=== PATIENT | male | born 1970 | race Caucasian/White ===

== ENCOUNTER 2021-04-11 20:22 | Inpatient (IN) | payer MEDICAID ==
[~2021-04-11] VITALS: Ht 175.3 cm; Wt 58.1 kg
[2021-04-11 22:30] VITALS: BP 129/84
[2021-04-11] MEDS ORDERED: NITROGLYCERIN 0.4 MG/TAB BOTTLE SL PRN (23:00)
--- NOTE | 2021-04-11 23:00 | NUR ---
Patient admitted from [facility]. Arrived to [address] at 2230, VSS. A&Ox2, unable to concentrate. Patient appears SOB with O2 via NC on 2L -o2 sat at 94%. Crackles and diminished breath sounds to pricila. lower lobes. Sinus tachy on monitor. bowel sounds active x4. Pupils equal and reactive to light. Redness to groin/periarea, clean with soap and water, dry, open to air. Patient has episodes of both continence and incontinence. Oriented to unit. Safety measures in place. Will continue to monitor respiratory status closely.
[2021-04-11] MEDS: ENOXAPARIN SODIUM 40 MG/0.4 ML DISP.SYRIN SQ SCH (23:51)
[2021-04-12] VITALS: BP 131/91
[2021-04-12] MEDS ORDERED: ATOV750O4 PO (01:15)
[2021-04-12] MEDS ORDERED: MULT-754 PO (01:46)
[2021-04-12] MEDS ORDERED: QUET25TA PO (01:46)
[2021-04-12] MEDS ORDERED: CHOL100040 PO (01:46)
[2021-04-12] MEDS ORDERED: ASCO-352 PO (01:46)
[2021-04-12] MEDS ORDERED: BICT1TAB PO (01:46)
[2021-04-12] MEDS ORDERED: FOLI0.8T3 PO (01:46)
[2021-04-12] MEDS ORDERED: MELA3TAB41 PO (01:46)
[2021-04-12] MEDS ORDERED: SENN-261 PO (01:46)
[2021-04-12] MEDS ORDERED: CALC500T88 PO (01:46)
[2021-04-12] MEDS ORDERED: CITR473S PO (01:46)
[2021-04-12] MEDS ORDERED: TAMS-12 PO (01:46)
[2021-04-12] MEDS ORDERED: SENNOSIDES 8.6 MG TABLET PO PRN (02:00)
[2021-04-12] MEDS ORDERED: MELATONIN 3 MG TABLET PO PRN (02:30)
[2021-04-12 04:00] VITALS: BP 128/76
[2021-04-12] MEDS ORDERED: ALBUTEROL FS 2.5 MG/0.5 ML VIAL.NEB NEB PRN (04:00)
[2021-04-12] MEDS ORDERED: IPRATROPIUM BROMIDE 14 GM INHALER (or 12.9 GM) IH PRN (04:00)
[2021-04-12] MEDS: AZITHROMYCIN 250 MG TABLET PO SCH (04:13)
[2021-04-12] MEDS: FUROSEMIDE 40 MG/4 ML VIAL IV SCH ×2 (04:14→09:13)
[2021-04-12 06:28] LABS: BILIRUBIN,URINE NEGATIVE (NEGATIVE); COLOR,URINE YELLOW (YELLOW); LEUKOCYTE ESTERASE ,URINE MODERATE (NEGATIVE); NITRITE, URINE NEGATIVE (NEGATIVE); PROTEIN,URINE 100 mg/dl (NEGATIVE); UGLUCOSE NEGATIVE (NEGATIVE); UROBILINOGEN,URINE 0.2 EU/dL (0.2)
[2021-04-12 06:28] LABS: BASOPHILS # (AUTO) 0.1 K/uL (0.0-0.2); BASOPHILS % (AUTO) 0.9 % (0.0-2.0); EOSINOPHILS % (AUTO) 1.6 % (0.0-6.0); HEMATOCRIT 25 % (39-51); HEMOGLOBIN 8.3 g/dL (13.5-17.5); LYMPHOCYTES # (AUTO) 2.2 K/uL (0.8-4.8); LYMPHOCYTES % (AUTO) 33.4 % (20.0-44.0); MEAN CORPUSCULAR HGB CONC 34 g/dl (31.0-36.0); MEAN CORPUSCULAR VOLUME 102 fL (80-96); MONOCYTES # (AUTO) 0.8 K/uL (0.1-1.30); MONOCYTES % (AUTO) 11.6 % (2.0-12.0); NEUTROPHILS # (AUTO) 3.5 K/uL (1.8-8.9); NEUTROPHILS % (AUTO) 52.5 % (43.0-81.0); PLATELET COUNT (AUTO) 333 K/uL (150-450); WHITE BLOOD COUNT (AUTO) 6.7 K/uL (4.3-11.0)
--- NOTE | 2021-04-12 06:35 | NUR ---
MS RN CLOSING NOTE Patient is awake, A&Ox2. shows sinus tachy on monitor. Had 1 episode where HR was in 130s while being changed. Otherwise 905-115bpm. Patient was annoyed with O2 cannula a couple times during the night and removed it, nurse and OPERATION SPECIALIST constantly reminding him to put it back on, when off of O2 sat was 90-92% on O2 2L sat is 94%. Has been compliant since 0. Urine clean cath collected and sent to lab for UA and urine culture. Patient denies SOB at this time but has shallow rapid breathing 23 breaths per minute.
[2021-04-12 07:18] LABS: ALBUMIN 2.8 g/dL (3.4-5.0); BILIRUBIN,TOTAL 1.1 mg/dL (0.2-1.0); CALCIUM, SERUM 8.5 mg/dL (8.5-10.1); CREATININE 3.3 mg/dL (0.6-1.3); MAGNESIUM 2.3 mg/dL (1.8-2.4); PHOSPHORUS 6.8 mg/dL (2.5-4.9); POTASSIUM 3.9 mmol/L (3.5-5.1); TOTAL PROTEIN, SERUM 9.1 g/dL (6.4-8.2)
[2021-04-12 07:24] LABS: THYROID STIMULATING HORMONE 0.813 uIU/mL (0.358-3.74)
--- NOTE | 2021-04-12 07:40 | NUR ---
TELE/RN OPENING NOTES RECEIVED PATIENT IN BED, ALERT ORIENTEDX2, ABLE TO MAKE NEEDS KNOWN. ON OXYGEN VIA NASAL CANNULA AT 2LPM, TOLERATING WELL. NO SOB NOTED, NO DISTRESS REPORTED. ON TELEMONITOR WITH A READING OF SINUS TACHY AT 116 BPM. IV ACCES ON LAC #20G IS INTACT AND PATENT ON SALINE LOCK. SAFETY PRECAUTIONS OBSERVED. BED LOCKED ON LOWEST POSITION, HOB ELEVATED, SIDE RAILS UPX2, CALL LIGHT WITHIN REACH. WILL CONTINUE TO MONITOR.
[2021-04-12 08:11] VITALS: BP 140/103
[2021-04-12] MEDS: CITRIC ACID/SODIUM CITRATE (BICITRA)15 ML UDC PO SCH ×2 (09:00→17:57)
[2021-04-12] MEDS ORDERED: FUROSEMIDE 40 MG/4 ML VIAL IV SCH (09:00)
[2021-04-12] MEDS: methylPREDNISolone SOD SUCC 40 MG/ML VIAL IV SCH (09:12)
[2021-04-12] MEDS: ASCORBIC ACID 500 MG TABLET PO SCH (09:13)
[2021-04-12] MEDS: FOLIC ACID 1 MG TABLET PO SCH (09:13)
[2021-04-12] MEDS: CHOLECALCIFEROL 1,000 UNIT TABLET (VIT D3) PO SCH (09:13)
[2021-04-12] MEDS: MULTIVITAMINS,THERAGRAN 1 UDTAB TABLET PO SCH (09:13)
[2021-04-12] MEDS: CALCIUM CARBONATE (1250) 500 MG TABLET PO SCH (09:14)
[2021-04-12 09:28] LABS: WBC,URINE 81-100 /HPF (0-3)
[2021-04-12 09:29] LABS: BACTERIA,URINE Few /HPF (None Seen); SQUAMOUS EPITHELIAL CELL,UR Rare /HPF (None Seen)
[2021-04-12 09:56] LABS: IRON, SERUM 90 ug/dl (50-175); TOTAL IRON BINDING CAPACITY 249 ug/dl (250-450)
[2021-04-12 10:10] LABS: FERRITIN 782 ng/mL (8-388)
[2021-04-12 11:28] VITALS: BP 159/113
[2021-04-12 16:44] VITALS: BP 149/119
--- NOTE | 2021-04-12 18:25 | NUR ---
TELE/RN NOTES- IV PATIENT PULLED OUT HIS IV AND WAS UNCOOPERATIVE WITH CARE. REFUSED RN TO START ANOTHER IV LINE. CHARGE NURSE ENOCH NOTIFIED. WILL CONTINUE TO MONITOR
--- NOTE | 2021-04-12 19:35 | NUR ---
RN NOTES RECEIVED PATIENT AWAKE ON HIS BED, A/OX1, TELE MONITOR ON STANDBY, NO IV ACCESS- REFUSED IV ACCESS, NOT IN DISTRESS, NO PAIN NOTED, CALL LIGHT WITHIN REACH, SIDERAILSUPX2, WILL CONTINUE TO MONITOR
--- NOTE | 2021-04-12 19:56 | NUR ---
TELE/RN CLOSING NOTES PATIENT IN BED, ALERT ORIENTEDX2, ABLE TO MAKE NEEDS KNOWN. ON AND OFF WITH OXYGEN VIA NASAL CANNULA AT 2LPM, TOLERATING WELL. NO SOB NOTED, NO DISTRESS REPORTED. PATIENT JUST REMOVED TELEMONITOR AND PULLED OUT IV ACCES ON LAC. SAFETY PRECAUTIONS OBSERVED. BED LOCKED ON LOWEST POSITION, HOB ELEVATED, SIDE RAILS UPX2, CALL LIGHT WITHIN REACH. WILL ENDORSE TO THE NEXT SHIFT FOR BHAVANI.
[2021-04-12 20:00] VITALS: BP 137/87
[2021-04-12] MEDS: ENOXAPARIN SODIUM 40 MG/0.4 ML DISP.SYRIN SQ SCH (21:55)
[2021-04-12] MEDS: TAMSULOSIN 0.4 MG CAP.SR.24H PO SCH (21:56)
[2021-04-12] MEDS: QUETIAPINE FUMARATE 25 MG TABLET PO SCH (21:56)
[2021-04-13] VITALS: BP 132/86
[2021-04-13 04:00] VITALS: BP 130/92
[2021-04-13] MEDS: AZITHROMYCIN 250 MG TABLET PO SCH (04:15)
--- NOTE | 2021-04-13 06:18 | NUR ---
RN NOTES PT IS AWAKE, DENIES PAIN, REFUSED IV ACCESS, PATIENT REFUSED TO BE TOUCHED, NOT IN DISTRESS, NO PAIN NOTED, PT. NEEDS ATTENDED
[2021-04-13 08:00] VITALS: BP 128/91
[2021-04-13 08:43] LABS: BASOPHILS % (AUTO) 0.6 % (0.0-2.0); EOSINOPHILS % (AUTO) 0.8 % (0.0-6.0); HEMATOCRIT 25 % (39-51); HEMOGLOBIN 8.2 g/dL (13.5-17.5); LYMPHOCYTES # (AUTO) 1.6 K/uL (0.8-4.8); LYMPHOCYTES % (AUTO) 28.6 % (20.0-44.0); MEAN CORPUSCULAR HGB CONC 33 g/dl (31.0-36.0); MEAN CORPUSCULAR VOLUME 104 fL (80-96); MONOCYTES # (AUTO) 0.6 K/uL (0.1-1.30); NEUTROPHILS # (AUTO) 3.4 K/uL (1.8-8.9); PLATELET COUNT (AUTO) 301 K/uL (150-450); RED BLOOD CELL COUNT(AUTO) 2.38 MIL/uL (4.5-6.0); WHITE BLOOD COUNT (AUTO) 5.7 K/uL (4.3-11.0)
[2021-04-13] MEDS: methylPREDNISolone SOD SUCC 40 MG/ML VIAL IV SCH ×2 (08:46→09:00)
[2021-04-13] MEDS: FUROSEMIDE 40 MG/4 ML VIAL IV SCH ×2 (08:46→09:00)
[2021-04-13] MEDS: ASCORBIC ACID 500 MG TABLET PO SCH (08:47)
[2021-04-13] MEDS: FOLIC ACID 1 MG TABLET PO SCH (08:47)
[2021-04-13] MEDS: CHOLECALCIFEROL 1,000 UNIT TABLET (VIT D3) PO SCH (08:47)
[2021-04-13] MEDS: MULTIVITAMINS,THERAGRAN 1 UDTAB TABLET PO SCH (08:47)
[2021-04-13] MEDS: CITRIC ACID/SODIUM CITRATE (BICITRA)15 ML UDC PO SCH ×2 (08:47→16:15)
[2021-04-13] MEDS: CALCIUM CARBONATE (1250) 500 MG TABLET PO SCH (08:47)
[2021-04-13 14:31] VITALS: BP 127/84
[2021-04-13 14:43] LABS: CALCIUM, SERUM 8.6 mg/dL (8.5-10.1); CREATININE 3.3 mg/dL (0.6-1.3); POTASSIUM 3.4 mmol/L (3.5-5.1)
--- NOTE | 2021-04-13 19:30 | NUR ---
RN OPENING NOTES PATIENT IN BED, AWAKE. PATIENT IS A/O X 1-2, PATIENT IS ABLE TO MAKE NEEDS KNOWN. CURRENTLY DOES NOT HAVE A GOWN ON AND TELE MONITOR, REFUSES TO PUT THEM ON. WILL TRY AGAIN LATER. PATIENT ENDORSED TO HAVE BEEN REFUSING IV INSERTION. PATIENT ON 3L OF OXYGEN SUPPLEMENTATION, SATING 95%. PATIENT EDUCATED REGARDING THE IMPORTANCE OF HAVING OXYGEN ON HE DOES NOT LIKE TO HAVE IT ON. SAFETY MEASURES IN PLACE; BED IN LOCKED AND IN LOWEST POSITION, CALL LIGHT WITHIN REACH, SIDE RAILS UP X 3, BED ALARM ON. WILL MONITOR PATIENT CLOSELY.
[2021-04-13 20:00] VITALS: BP 130/96
[2021-04-13] MEDS: QUETIAPINE FUMARATE 25 MG TABLET PO SCH (21:46)
[2021-04-13] MEDS: TAMSULOSIN 0.4 MG CAP.SR.24H PO SCH (21:46)
[2021-04-13] MEDS: ENOXAPARIN SODIUM 40 MG/0.4 ML DISP.SYRIN SQ SCH (21:47)
[2021-04-14] VITALS: BP 139/92
[2021-04-14] MEDS: AZITHROMYCIN 250 MG TABLET PO SCH (03:39)
[2021-04-14 04:00] VITALS: BP 117/90
--- NOTE | 2021-04-14 07:15 | NUR ---
RN CLOSING NOTE PATIENT IN BED, A/O X 1-2. PATIENT IS ABLE TO MAKE NEEDS KNOWN. CURRENTLY ON 3 L OF OXYGEN SATTING 94-95%. PATIENT'S BREATHING EVEN AND UNLABORED. TELE READING ST 109 BPM. PATIENT NEEDS REINFORCEMENT ON OXYGEN USE AND CARDIAC MONITORING. ALL ORDERS CARRIED OUT. ALL NEEDS MET AND ATTENDED. ENDORSED TO DAY SHIFT NURSE FOR BHAVANI.
[2021-04-14] MEDS: CITRIC ACID/SODIUM CITRATE (BICITRA)15 ML UDC PO SCH ×2 (08:16→16:27)
[2021-04-14] MEDS: ASCORBIC ACID 500 MG TABLET PO SCH (08:17)
[2021-04-14] MEDS: CALCIUM CARBONATE (1250) 500 MG TABLET PO SCH (08:17)
[2021-04-14] MEDS: FOLIC ACID 1 MG TABLET PO SCH (08:17)
[2021-04-14] MEDS: CHOLECALCIFEROL 1,000 UNIT TABLET (VIT D3) PO SCH (08:17)
[2021-04-14] MEDS: MULTIVITAMINS,THERAGRAN 1 UDTAB TABLET PO SCH (08:17)
[2021-04-14] MEDS: methylPREDNISolone SOD SUCC 40 MG/ML VIAL IV SCH (08:18)
[2021-04-14] MEDS: FUROSEMIDE 40 MG/4 ML VIAL IV SCH (08:18)
--- NOTE | 2021-04-14 09:00 | NUR ---
SS consult received over the weekend for homelessness. SW will follow up at a later time.
[2021-04-14 11:06] LABS: *SPE A/G RATIO 0.5 (0.7-1.7); *SPE ALPHA-1-GLOBULIN 0.2 g/dL (0.0-0.4); *SPE ALPHA-2-GLOBULIN 0.9 g/dL (0.4-1.0); *SPE BETA GLOBULIN 0.9 g/dL (0.7-1.3); *SPE GLOBULIN, TOTAL 5.7 g/dL (2.2-3.9); *SPE M-SPIKE Not Observed g/dL (Not Observed); *SPEGAMMA GLOBULIN 3.7 g/dL (0.4-1.8)
[2021-04-14] MEDS: TENOFOVIR DISOPROXIL FUMARATE 300 MG TABLET PO SCH (18:52)
[2021-04-14] MEDS: EMTRICITABINE 200 MG CAPSULE PO SCH (18:52)
--- NOTE | 2021-04-14 19:30 | NUR ---
RN OPENING NOTE PATIENT IS IN BED AWAKE. PATIENT IS CURRENTLY A/O X 1. TELE MONITOR IS ON STANDBY, PATIENT DOES NOT HAVE TELE MONITORING ON. WILL TRY TO ATTACH LEADS AT A LATER TIME. DOES NOT REPORT OF ANY PAIN OR DISCOMFORT AT THIS TIME. PATIENT DOES NOT HAVE THE NASAL CANNULA ON AT THIS TIME, 3 L. PATIENT CONTINUES TO TAKE OFF NASAL CANNULA ON REGARDLESS OF EDUCATION. WILL CONTINUE TO REINFORCE. SAFETY MEASURES IN PLACE: BED LOCKED AND IN LOWEST POSITION, CALL LIGHT WITHIN REACH, SIDE RAILS UP, BED ALARM ON. WILL MONITOR PATIENT CLOSELY.
[2021-04-14 20:00] VITALS: BP 133/99
[2021-04-14] MEDS: hydrALAZINE HCL 25 MG TABLET PO SCH (20:25)
[2021-04-14] MEDS: ISOSORBIDE DINITRATE (10MG) 10 MG TABLET PO SCH (20:53)
[2021-04-14] MEDS: MUPIROCIN OINT 2% 22 GM TUBE NS SCH (20:54)
[2021-04-14] MEDS: ENOXAPARIN SODIUM 40 MG/0.4 ML DISP.SYRIN SQ SCH (21:02)
[2021-04-14] MEDS: QUETIAPINE FUMARATE 25 MG TABLET PO SCH (21:02)
[2021-04-14] MEDS: TAMSULOSIN 0.4 MG CAP.SR.24H PO SCH (21:02)
[2021-04-15] VITALS: BP 130/85
[2021-04-15 04:00] VITALS: BP 136/92
[2021-04-15] MEDS: AZITHROMYCIN 250 MG TABLET PO SCH (04:05)
[2021-04-15] MEDS: ISOSORBIDE DINITRATE (10MG) 10 MG TABLET PO SCH ×3 (04:31→21:18)
[2021-04-15] MEDS: hydrALAZINE HCL 25 MG TABLET PO SCH ×3 (04:32→21:17)
--- NOTE | 2021-04-15 06:28 | NUR ---
RN CLOSING NOTE PATIENT'S WEIGHT IS 125.0 LBS WITH ONLY ONE PILLOW AND CHUX AND HOB DOWN. PATIENT'S WEIGHT WITH DVT PUMP, HOB ELEVATED, THEN IT BECOMES 133.5 LBS. ADMITTING WEIGHT WAS 138 LBS. CHARGE NURSE AWARE OF WEIGHT INCONSISTENCY. PATIENT SLEEPING AT THIS TIME, EASILY AWAKENED. WEARING NASAL CANNULA AT 3L, SATURATING AT 95%. PATIENT IS ABLE TO MAKE NEEDS KNOWN. FLUID INTAKE WAS 300 ML. REFUSES TO BE ATTACH TO HEAT TREAT FURNACE OPERATOR. PATIENT'S BP AT 0400 165/93, BP MEDS SCHEDULED GIVEN, BP DOWN TO 136/62 AT 0500. ALL NEEDS MET AND ATTENDED, ALL ORDERS CARRIED OUT. WILL ENDORSE TO DAY SHIFT NURSE FOR BHAVANI.
--- NOTE | 2021-04-15 07:59 | NUR ---
SOLAR LAB TECHNICIAN OPENING NOTE PATIENT IS IN BED RESTING, PATIENT IS IN NO ACUTE DISTRESS. PATIENT IS TELE, PATIENT REFUSING TELE BOX, PATIENT REFUSING IV ACCESS, PATIENT IS NON-COMPLIANT. SAFETY PRECAUTIONS ARE ON, BED IS LOCKED IN THE LOWEST POSITION WITH SIDE RAILS UP, CALL LIGHT WITHIN REACH. WILL CONTINUE TO MONITOR CLOSELY.
[2021-04-15] MEDS: methylPREDNISolone SOD SUCC 40 MG/ML VIAL IV SCH (09:00)
[2021-04-15] MEDS: FUROSEMIDE 40 MG/4 ML VIAL IV SCH (09:00)
[2021-04-15] MEDS: CITRIC ACID/SODIUM CITRATE (BICITRA)15 ML UDC PO SCH ×2 (09:58→17:36)
[2021-04-15] MEDS: MULTIVITAMINS,THERAGRAN 1 UDTAB TABLET PO SCH (09:59)
[2021-04-15] MEDS: CHOLECALCIFEROL 1,000 UNIT TABLET (VIT D3) PO SCH (09:59)
[2021-04-15] MEDS: CALCIUM CARBONATE (1250) 500 MG TABLET PO SCH (09:59)
[2021-04-15] MEDS: FOLIC ACID 1 MG TABLET PO SCH (09:59)
[2021-04-15] MEDS: ASCORBIC ACID 500 MG TABLET PO SCH (09:59)
[2021-04-15] MEDS: MUPIROCIN OINT 2% 22 GM TUBE NS SCH ×2 (10:05→21:21)
--- NOTE | 2021-04-15 10:06 | NUR ---
STRIPPER PRELIMINARY NOTE PATIENT IS REFUSING IV ACCESS ACCESS TO ADMINISTER PROTONIX IV AND SOLUMEDROL IV , UNABLE TO ADMINISTER IV INFUSION
[2021-04-15] MEDS ORDERED: FUROSEMIDE 80 MG TABLET PO SCH (10:30)
[2021-04-15] MEDS: ATOVAQUONE SUSP 750 MG/5 ML PACKET PO SCH (11:10)
--- NOTE | 2021-04-15 11:20 | NUR ---
WOUND CARE CONSULT: PT REFUSING SKIN ASSESSMENT PER RN. WILL SEE PRN.
--- NOTE | 2021-04-15 15:44 | NUR ---
director of food and beverage services to follow up at a later time for safe & appropriate homeless discharge.
--- NOTE | 2021-04-15 18:36 | NUR ---
CLINICAL OPERATIONS MANAGER CLOSING NOTE PATIENT IS IN BED RESTING, PATIENT IS IN NO ACUTE DISTRESS. PATIENT IS TELE, PATIENT REFUSING TELE BOX, PATIENT REFUSING IV ACCESS, PATIENT IS NON-COMPLIANT. SAFETY PRECAUTIONS ARE ON, BED IS LOCKED IN THE LOWEST POSITION WITH SIDE RAILS UP, CALL LIGHT WITHIN REACH. ENDORSE PATIENT TO BRIM FLEXER NURSE FOR BHAVANI.
--- NOTE | 2021-04-15 19:30 | NUR ---
SERICULTURE TEACHER NOTES PATIENT IN BED WITH EYES CLOSED, EASY TO AROUSE. A/OX2. PATIENT REFUSED CARE -- NOT ON MONITOR FOR TELE MONITORING, NO IV ACCESS -- ENDORSED TO ME LIKE THAT. IN OXYGEN 3LPM VIA NC. NO S/S OF DISTRESS. NO C/O PAIN AT THIS TIME. WILL CONTINUE TO MONITOR.
[2021-04-15 20:00] VITALS: BP 140/96
[2021-04-15] MEDS: QUETIAPINE FUMARATE 25 MG TABLET PO SCH (21:16)
[2021-04-15] MEDS: TAMSULOSIN 0.4 MG CAP.SR.24H PO SCH (21:16)
[2021-04-15] MEDS: ENOXAPARIN SODIUM 40 MG/0.4 ML DISP.SYRIN SQ SCH (21:20)
[2021-04-16] VITALS: BP 157/99
[2021-04-16 04:00] VITALS: BP 136/95
[2021-04-16] MEDS: AZITHROMYCIN 250 MG TABLET PO SCH (04:05)
[2021-04-16] MEDS: ISOSORBIDE DINITRATE (10MG) 10 MG TABLET PO SCH ×3 (05:49→21:08)
[2021-04-16] MEDS: hydrALAZINE HCL 25 MG TABLET PO SCH ×3 (05:50→21:07)
[2021-04-16 06:07] LABS: BASOPHILS % (AUTO) 0.9 % (0.0-2.0); EOSINOPHILS % (AUTO) 7.2 % (0.0-6.0); HEMATOCRIT 25 % (39-51); HEMOGLOBIN 8.4 g/dL (13.5-17.5); LYMPHOCYTES # (AUTO) 1.5 K/uL (0.8-4.8); LYMPHOCYTES % (AUTO) 29.7 % (20.0-44.0); MEAN CORPUSCULAR HGB CONC 34 g/dl (31.0-36.0); MEAN CORPUSCULAR VOLUME 104 fL (80-96); MONOCYTES # (AUTO) 0.6 K/uL (0.1-1.30); MONOCYTES % (AUTO) 11.2 % (2.0-12.0); NEUTROPHILS # (AUTO) 2.5 K/uL (1.8-8.9); PLATELET COUNT (AUTO) 247 K/uL (150-450); RED BLOOD CELL COUNT(AUTO) 2.41 MIL/uL (4.5-6.0); WHITE BLOOD COUNT (AUTO) 4.9 K/uL (4.3-11.0)
--- NOTE | 2021-04-16 06:58 | NUR ---
TICKET BROKER NOTES PATIENT IN BED. A/OX3. NO S/S OF APPARENT DISTRESS. NO C/O PAIN AT THIS TIME. TELE BOX NOT CONNECTED -- PATIENT REFUSED. NO SIGNIFICANT CHANGE SINCE LAST SHIFT. SAFETY KEPT IN PLACE THE WHOLE SHIFT. ALL NEEDS ATTENDED. ALL SCHED MEDS ADMINISTERED. WILL ENDORSE CARE TO MORNING SHIFT RN.
--- NOTE | 2021-04-16 07:10 | NUR ---
MORTGAGE PROCESSING CLERK OPENING NOTES RECEIVING PT A/O X4. PT ARRIVED ON GURNEY AND WAS TRANSFERRED TO BED AND COMFORT MEASURES PROVIDED. MAINTAINED ON MODERATE TO HIGH BACK REST. PT HAS NO C/O PAIN OR DISCOMFORT AT THIS TIME. ON OXYGEN AT 3LPM VIA NASAL CANULA SATURATING AT 96%. PATIENT FOR HOUSING PLACEMENT RELATED TO HOMELESSNESS C/O RECORD SEARCHER. SAFETY MEASURES MAINTAINED. BED IN LOWEST LOCKED POSITION, HOB ELEVATED, SIDE RAILS UP X2. CALL LIGHT AND TABLE WITHIN REACH. WILL CONTINUE TO MONITOR PATIENT.
[2021-04-16 07:20] LABS: ALBUMIN 2.7 g/dL (3.4-5.0); BILIRUBIN,TOTAL 0.7 mg/dL (0.2-1.0); CALCIUM, SERUM 8.4 mg/dL (8.5-10.1); CREATININE 2.6 mg/dL (0.6-1.3); MAGNESIUM 2.2 mg/dL (1.8-2.4); PHOSPHORUS 4.4 mg/dL (2.5-4.9); POTASSIUM 3.3 mmol/L (3.5-5.1); TOTAL PROTEIN, SERUM 8.4 g/dL (6.4-8.2)
[2021-04-16 08:00] VITALS: BP 130/91
[2021-04-16] MEDS ORDERED: POTASSIUM CHLORIDE 20 MEQ TAB.PRT.SR PO ONE (08:00)
[2021-04-16] MEDS: MUPIROCIN OINT 2% 22 GM TUBE NS SCH ×2 (09:00→17:31)
[2021-04-16] MEDS: ATOVAQUONE SUSP 750 MG/5 ML PACKET PO SCH (09:18)
[2021-04-16] MEDS: CITRIC ACID/SODIUM CITRATE (BICITRA)15 ML UDC PO SCH ×2 (09:20→17:30)
[2021-04-16] MEDS: ASCORBIC ACID 500 MG TABLET PO SCH (09:20)
[2021-04-16] MEDS: MULTIVITAMINS,THERAGRAN 1 UDTAB TABLET PO SCH (09:20)
[2021-04-16] MEDS: CALCIUM CARBONATE (1250) 500 MG TABLET PO SCH (09:21)
[2021-04-16] MEDS: FOLIC ACID 1 MG TABLET PO SCH (09:22)
[2021-04-16] MEDS: FUROSEMIDE 40 MG TABLET PO SCH (09:22)
[2021-04-16] MEDS: CHOLECALCIFEROL 1,000 UNIT TABLET (VIT D3) PO SCH (09:22)
[2021-04-16] MEDS: methylPREDNISolone SOD SUCC 40 MG/ML VIAL IV SCH (09:22)
--- NOTE | 2021-04-16 10:30 | NUR ---
City Collector note: career services director consult received for homelessness. SS will follow up at a later time.
[2021-04-16 16:35] VITALS: BP 145/100
--- NOTE | 2021-04-16 19:00 | NUR ---
PAPER PRODUCTS SUPERVISOR CLOSING NOTES RECEIVING PT A/O X4. PT ARRIVED ON GURNEY AND WAS TRANSFERRED TO BED AND COMFORT MEASURES PROVIDED. MAINTAINED ON MODERATE TO HIGH BACK REST. PT HAS NO C/O PAIN OR DISCOMFORT AT THIS TIME. ON OXYGEN AT 3LPM VIA NASAL CANULA SATURATING AT 96%. WITH IV ACCESS OF LEFT FA G24, PATENT AND INTACT. PATIENT FOR HOUSING PLACEMENT RELATED TO HOMELESSNESS C/O PUBLIC POLICY MANAGER. SAFETY MEASURES MAINTAINED. BED IN LOWEST LOCKED POSITION, HOB ELEVATED, SIDE RAILS UP X2. CALL LIGHT AND TABLE WITHIN REACH. WILL ENDORSE TO NEXT SHIFT FOR CONTINUITY OF CARE.
--- NOTE | 2021-04-16 19:30 | NUR ---
RN NOTE RECEIVED PATIENT IN BED, AO X 2-3, IN NO S/SX OF ACUTE DISTRESS AT THIS TIME. BREATHING EVEN AND UNLABORED, SATURATION AT 96% ON 3L VIA NC, HR IS 101. NOTED IV SITE AT LFA 20G, PATENT AND FLUSHING WELL, NO S/S OF INFECTION OR INFILTRATION. SAFETY MEASURES IMPLEMENTED. PATIENT BED ALARM IS ON. HEAD OF BED ELEVATED. BED IS LOCKED, IN LOWEST POSITION AND SIDE RAILS UP. CALL LIGHT WITHIN REACH OF THE PATIENT. WILL CONTINUE TO MONITOR AND REASSESS FOR ANY CHANGES.
[2021-04-16 20:00] VITALS: BP 125/89
[2021-04-16] MEDS: TAMSULOSIN 0.4 MG CAP.SR.24H PO SCH (21:08)
[2021-04-16] MEDS: QUETIAPINE FUMARATE 25 MG TABLET PO SCH (21:08)
[2021-04-16] MEDS: ENOXAPARIN SODIUM 40 MG/0.4 ML DISP.SYRIN SQ SCH (21:28)
[2021-04-17] MEDS: AZITHROMYCIN 250 MG TABLET PO SCH (04:21)
[2021-04-17] MEDS: hydrALAZINE HCL 25 MG TABLET PO SCH ×3 (04:31→21:14)
[2021-04-17] MEDS: ISOSORBIDE DINITRATE (10MG) 10 MG TABLET PO SCH ×3 (04:32→20:28)
[2021-04-17 06:29] LABS: BASOPHILS % (AUTO) 0.2 % (0.0-2.0); EOSINOPHILS % (AUTO) 0.1 % (0.0-6.0); HEMATOCRIT 25 % (39-51); HEMOGLOBIN 8.3 g/dL (13.5-17.5); LYMPHOCYTES # (AUTO) 1.4 K/uL (0.8-4.8); LYMPHOCYTES % (AUTO) 25.7 % (20.0-44.0); MEAN CORPUSCULAR HGB CONC 33 g/dl (31.0-36.0); MEAN CORPUSCULAR VOLUME 103 fL (80-96); MONOCYTES # (AUTO) 0.4 K/uL (0.1-1.30); MONOCYTES % (AUTO) 6.8 % (2.0-12.0); NEUTROPHILS # (AUTO) 3.6 K/uL (1.8-8.9); NEUTROPHILS % (AUTO) 67.2 % (43.0-81.0); PLATELET COUNT (AUTO) 242 K/uL (150-450); RED BLOOD CELL COUNT(AUTO) 2.43 MIL/uL (4.5-6.0); WHITE BLOOD COUNT (AUTO) 5.4 K/uL (4.3-11.0)
[2021-04-17 06:45] LABS: CALCIUM, SERUM 8.5 mg/dL (8.5-10.1); CREATININE 2.8 mg/dL (0.6-1.3); POTASSIUM 4.3 mmol/L (3.5-5.1)
[2021-04-17 08:00] VITALS: BP 134/95
--- NOTE | 2021-04-17 08:00 | NUR ---
RN OPENING NOTE PT AWAKE IN BED PRESENT. ON 3L NC WITH NO RESPIRATORY DISTRESS PRESENT. A/O X 2 AND BULGARIAN SPEAKING. NO COMPLAINT OF PAIN OF NAUSEA PRESENT. NO REEL BLADE BENDER FURNACE TENDER PRESENT. NO EDEMA PRESENT. ON BEDREST WITH DIAPER PRESENT. GROIN REDNESS PRESENT. ON CARDIAC DIET WITH FLUID RESTRICTION OF 1000 ML. IV PRESENT ON L FA 24 G ANG FLUSHES WELL. LABS AND ORDERS REVIEWED. SAFETY MEASURES IN PLACE. SIDE RAILS RAISED. BED LOWERED. CALL LIGHT WITHIN REACH. WILL CONTINUE TO MONITOR.
[2021-04-17] MEDS: methylPREDNISolone SOD SUCC 40 MG/ML VIAL IV SCH (08:15)
[2021-04-17] MEDS: CITRIC ACID/SODIUM CITRATE (BICITRA)15 ML UDC PO SCH ×2 (08:15→17:33)
[2021-04-17] MEDS: FOLIC ACID 1 MG TABLET PO SCH (08:15)
[2021-04-17] MEDS: FUROSEMIDE 40 MG TABLET PO SCH (08:15)
[2021-04-17] MEDS: CALCIUM CARBONATE (1250) 500 MG TABLET PO SCH (08:16)
[2021-04-17] MEDS: ATOVAQUONE SUSP 750 MG/5 ML PACKET PO SCH (08:16)
[2021-04-17] MEDS: CHOLECALCIFEROL 1,000 UNIT TABLET (VIT D3) PO SCH (08:16)
[2021-04-17] MEDS: MULTIVITAMINS,THERAGRAN 1 UDTAB TABLET PO SCH (08:16)
[2021-04-17] MEDS: ASCORBIC ACID 500 MG TABLET PO SCH (08:16)
[2021-04-17] MEDS: MUPIROCIN OINT 2% 22 GM TUBE NS SCH ×2 (08:26→21:16)
--- NOTE | 2021-04-17 15:43 | NUR ---
"SS Consult: SS Consult requested for Homelessness. The pt. is a 50-year old male. The pt. appears unkempt is A&O X3 and makes good eye contact. Pt.s speech is slurred most likely due to missing teeth. Pt.s mood is euthymic. ERIK explored pt.s living situation. Pt. states he has been homeless for a 3 or more years. ERIK explored pt.s mental health Hx. Pt. denies any mental health illness or psychotropic medications. SW explored pt.s drug & ETOH use. Patient states I havent used alcohol or drugs in many years. Pt. states he is ambulatory; However, per charge nurse, Clarissa she requested PT eval which is pending. ERIK explored pt.s support system. Pt. states he has family in the area who he is not in communication with. D/C PLAN: Pt. stated he would like to be discharged back to the street and refused group home placement. Discharge plans may change depending on PT recommendations. Pt. signed homeless waiver and it was placed in the chart. ERIK provided pt. with homeless, and mental health resources and he accepted them : Year-round shelters: [facility] [address] [place] [address] ; [facility] [address] [place] [address]; [facility] [id number] [facility] [address] Winter Shelters: [facility] Provider: [facility] [place] Address: [address] [place] [address], [address] # of Beds: 47 Population Served: [facility] 6 | [facility] Danna Hunter [place] Provider: [facility] Address: [address], [address] # of Beds: 66 Population Served: [facility] [place] Provider: [facility] Serve Address: [address] [facility], [address] # of Beds: 56 Population Served: Chad Eric Provider: FRANKY/[facility] Address: [address] [facility], [address] # of Beds: 49 Population Served: [place] SPA 8 | [place] Provider: [facility] Address: [address] [facility]. Jazmyn Shah501 # of Beds: 37 Population Served: Coed Hygiene: [facility]: [address] [place] ; [facility] [address] [facility] ; [facility] [address] [place] . Food Resources: [place] [facility] at [facility]- [address] [place]; Meet Each Need with Dignity ([facility]) [address] [facility] [place]; [facility] Food [facility]ry [address] [facility]; [facility] [address] [facility] Center[facility] [place]. Mental Health resources provided: [facility] [address] [place], [place] [phone] ; [facility] [address] [facility] [address], [place], [place] [phone] ; [facility] [address] [place], [place] [phone] ; [facility] [address] [place], [place] [address] Healthcare Clinics: [facility] [address] [facility], [address] [place]. [place] ; [facility] [address] [facility] [address] [place] [address]; [facility] [place] [address] [facility] [place] [phone] Counseling--Outpatient [facility] [address] [facility], [facility] [place], [place] [phone] (Specializes in in-depth psychotherapy for emotional distress: anxiety, depression, interpersonal conflicts, life transitions, childhood abuse) [place] [id number] [place] [address] (Assist with solving problem marital difficulties, separation & divorce, aging parents, & grief, chronic & terminal illness) [facility] [address] [place], [place] [phone] (Deal with loss & grief, anxiety, marital difficulties) Homebound/Mental Health Services [address] [address] [facility] [address] [place], [place] [phone] (Provide in-home mental services to people who are incapable of leaving their homes) [facility] for Needs of the Elderly Senior Service/Resource Center [address] [place] [address] [facility] [address] [facility] [place] [address] PSYCHIATRIC OUTPATIENT SERVICES [facility] Partial Hospitalization and Intensive Outpatient Program (Managed Care and [place] Only)[address] [facility] [phone] [facility] Partial Hospitalization and Outpatient [id number] [place], [place] [phone] [facility] [place] [id number] [address] [place], [place] [phone] [facility] Partial Hospitalization and Outpatient [id number] [place], [phone] Substance Abuse resources provided included: [facility] Substance Abuse Self-Helpline (SAS) ; CRI [facility]HELP [address] [facility]. [place] [address] ; [facility] [address] [facility] [address] ; [facility] [address] [address] [facility] [address] ; [facility] [address] [facility] [address] ; [facility] 69[address] R[address] [facility] [address] ; [facility] [address] [facility] [phone] ; [facility] Substance Abuse Helpline(SAS)[facility] ; [facility] ; [facility] [place]; [facility] [place]; C[facility] [place]; [facility] Raza [place]; [facility] [place]; [facility] [place]; [facility]; [facility] Evan Eric; Alcoholics Anonymous -SFV; Mk-Wimy-Oyjhucf ; Marijuana Anonymous -SFV; Narcotics Anonymous www.na.org"
[2021-04-17 16:00] VITALS: BP 141/109
[2021-04-17] MEDS: TENOFOVIR DISOPROXIL FUMARATE 300 MG TABLET PO SCH (17:33)
[2021-04-17] MEDS: EMTRICITABINE 200 MG CAPSULE PO SCH (17:33)
--- NOTE | 2021-04-17 18:32 | NUR ---
RN CLOSING NOTE PT AWAKE IN BED PRESENT. ON 3L NC WITH NO RESPIRATORY DISTRESS PRESENT. A/O X 2 AND BULGARIAN SPEAKING. NO COMPLAINT OF PAIN OF NAUSEA PRESENT. NO RN COMPLEX CARE PRESENT. NO EDEMA PRESENT. ON BEDREST WITH DIAPER PRESENT. GROIN REDNESS PRESENT. ON CARDIAC DIET WITH FLUID RESTRICTION OF 1000 ML. IV PRESENT ON L FA 24 G ANG FLUSHES WELL. LABS AND ORDERS REVIEWED. SAFETY MEASURES IN PLACE. MEDS GIVEN PER PROTOCOL. SIDE RAILS RAISED. BED LOWERED. CALL LIGHT WITHIN REACH. WILL CONTINUE TO MONITOR.
--- NOTE | 2021-04-17 19:02 | NUR ---
CONTINUITY OF CARE Patient in bed, awake. Tolerating room air, no c/o sob. A/O x2 looks restless. Bed alarm on and audible. Fall precaution maintained.
[2021-04-17 20:00] VITALS: BP 136/81
[2021-04-17] MEDS: METOPROLOL TARTRATE 25 MG TABLET PO SCH (20:29)
[2021-04-17] MEDS: QUETIAPINE FUMARATE 25 MG TABLET PO SCH (21:14)
[2021-04-17] MEDS: TAMSULOSIN 0.4 MG CAP.SR.24H PO SCH (21:14)
[2021-04-17] MEDS: ENOXAPARIN SODIUM 40 MG/0.4 ML DISP.SYRIN SQ SCH (21:18)
--- NOTE | 2021-04-17 21:20 | NUR ---
ANTICOAGULANT H/H 8.3 Plt 242 No active bleeding. Lovenox injection given co-signed by WASHINGTON Collins.
[2021-04-17] MEDS ORDERED: Z GUARD REMEDY 2 OZ OINT TP PRN (23:30)
[2021-04-18] MEDS: AZITHROMYCIN 250 MG TABLET PO SCH (05:37)
[2021-04-18] MEDS: ISOSORBIDE DINITRATE (10MG) 10 MG TABLET PO SCH ×3 (05:37→22:39)
[2021-04-18] MEDS: hydrALAZINE HCL 25 MG TABLET PO SCH ×3 (05:37→22:38)
--- NOTE | 2021-04-18 06:08 | NUR ---
END OF SHIFT REPORT Patient is A/O x2. On PO Abx Afebrile. Tolerating room air. Continue on Diuretic, remains on Fluid restriction, voiding urine. No c/o pain. Compliant with medication. 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 Will endorse to oncoming RN. Fall precaution maintained.
[2021-04-18 06:37] LABS: BASOPHILS % (AUTO) 0.8 % (0.0-2.0); EOSINOPHILS % (AUTO) 3.7 % (0.0-6.0); HEMATOCRIT 25 % (39-51); HEMOGLOBIN 8.4 g/dL (13.5-17.5); LYMPHOCYTES # (AUTO) 1.6 K/uL (0.8-4.8); LYMPHOCYTES % (AUTO) 30.2 % (20.0-44.0); MEAN CORPUSCULAR HGB CONC 34 g/dl (31.0-36.0); MEAN CORPUSCULAR VOLUME 103 fL (80-96); MONOCYTES # (AUTO) 0.5 K/uL (0.1-1.30); MONOCYTES % (AUTO) 8.9 % (2.0-12.0); NEUTROPHILS % (AUTO) 56.4 % (43.0-81.0); PLATELET COUNT (AUTO) 243 K/uL (150-450); RED BLOOD CELL COUNT(AUTO) 2.42 MIL/uL (4.5-6.0); WHITE BLOOD COUNT (AUTO) 5.3 K/uL (4.3-11.0)
[2021-04-18 07:03] LABS: CALCIUM, SERUM 8.3 mg/dL (8.5-10.1); CREATININE 2.6 mg/dL (0.6-1.3); POTASSIUM 3.4 mmol/L (3.5-5.1)
--- NOTE | 2021-04-18 07:44 | NUR ---
RN OPENING NOTE PT AWAKE IN BED PRESENT. ON RA WITH NO SOB OR RESPIRATORY DISTRESS PRESENT. A/O X 2 AND MAORI SPEAKING. NO COMPLAINT OF PAIN OF NAUSEA PRESENT. NO SIMULATION TECHNICIAN PRESENT. NO EDEMA PRESENT. ON BEDREST WITH DIAPER PRESENT. GROIN REDNESS PRESENT. ON CARDIAC DIET WITH FLUID RESTRICTION OF 1000 ML. IV PRESENT ON L FA 24 G ANG FLUSHES WELL. LABS AND ORDERS REVIEWED. SAFETY MEASURES IN PLACE. SIDE RAILS RAISED. BED LOWERED. CALL LIGHT WITHIN REACH. WILL CONTINUE TO MONITOR.
[2021-04-18 08:00] VITALS: BP 109/68
[2021-04-18] MEDS: methylPREDNISolone SOD SUCC 40 MG/ML VIAL IV SCH (09:13)
[2021-04-18] MEDS: FOLIC ACID 1 MG TABLET PO SCH (09:13)
[2021-04-18] MEDS: CITRIC ACID/SODIUM CITRATE (BICITRA)15 ML UDC PO SCH ×2 (09:13→16:43)
[2021-04-18] MEDS: METOPROLOL TARTRATE 25 MG TABLET PO SCH ×2 (09:14→22:39)
[2021-04-18] MEDS: ATOVAQUONE SUSP 750 MG/5 ML PACKET PO SCH (09:14)
[2021-04-18] MEDS: ASCORBIC ACID 500 MG TABLET PO SCH (09:15)
[2021-04-18] MEDS: CALCIUM CARBONATE (1250) 500 MG TABLET PO SCH (09:15)
[2021-04-18] MEDS: MULTIVITAMINS,THERAGRAN 1 UDTAB TABLET PO SCH (09:15)
[2021-04-18] MEDS: CHOLECALCIFEROL 1,000 UNIT TABLET (VIT D3) PO SCH (09:15)
[2021-04-18] MEDS: MUPIROCIN OINT 2% 22 GM TUBE NS SCH ×2 (11:22→22:17)
--- NOTE | 2021-04-18 12:19 | NUR ---
SS note: SW follow up for discharge planning. Per Gonzalo Aj, PT patient would benefit from a SNF. ERIK notified family independence case managerAshtyn of this d/c plan. Ashtyn notified ERIK that family independence case managerDianna will follow up. No further SS intervention at this time.
[2021-04-18 13:20] LABS: *ANCANTIMYELOPEROXIDASE (MPO) <9.0 U/mL (0.0-9.0); *ANCANTIPROTEINASE 3 (PR-3) AB 11.8 U/mL (0.0-3.5)
[2021-04-18 16:00] VITALS: BP 123/87
--- NOTE | 2021-04-18 18:39 | NUR ---
RN CLOSING NOTE PT AWAKE IN BED PRESENT. ON RAWITH NO RESPIRATORY DISTRESS PRESENT. A/O X 2 AND CHADIAN SPEAKING. NO COMPLAINT OF PAIN OF NAUSEA PRESENT. NO RECORDAK OPERATOR PRESENT. NO EDEMA PRESENT. ON BEDREST WITH DIAPER PRESENT. SKIN INTACT. ON CARDIAC DIET WITH FLUID RESTRICTION OF 1000 ML. IV PRESENT ON L FA 24 G ANG FLUSHES WELL. LABS AND ORDERS REVIEWED. SAFETY MEASURES IN PLACE. MEDS GIVEN PER PROTOCOL. SIDE RAILS RAISED. BED LOWERED. CALL LIGHT WITHIN REACH. WILL GIVE REPORT TO NIGHT NURSE FOR BHAVANI.
--- NOTE | 2021-04-18 19:35 | NUR ---
MS RN OPENING NOTE PATIENT A/OX2; AWAKE. TOLERATING ROOM AIR WELL WITH NO SOB. LAC #24G S/L; PATENT AND INTACT. VSS. NO S/S OF PAIN OR DISCOMFORT SAFETY MEASURES IN PLACE: BED IN LOWEST LOCKED POSITION, SIDE RAILS UPX2, CALL LIGHT WITHIN EASY REACH, BED ALARMS ON. PATIENT IN STABLE CONDITION; WILL CONT. PLAN OF CARE.
[2021-04-18 20:00] VITALS: BP 113/96
[2021-04-18] MEDS ORDERED: LORAZEPAM INJ 2 MG/ML VIAL IVP ONE (21:30)
[2021-04-18 22:30] VITALS: BP 113/96
[2021-04-18] MEDS: QUETIAPINE FUMARATE 25 MG TABLET PO SCH (22:38)
[2021-04-18] MEDS: TAMSULOSIN 0.4 MG CAP.SR.24H PO SCH (22:39)
[2021-04-18] MEDS: ENOXAPARIN SODIUM 40 MG/0.4 ML DISP.SYRIN SQ SCH (22:41)
--- NOTE | 2021-04-18 22:41 | NUR ---
MS RN NOTE - AGITATION PATIENT NOTED WITH AGITATION AND NONCOMPLIANCE WITH ADLS. ADMINISTERED ATIVAN ORDERED X1. WILL CONTINUE TO REASSESS.
[2021-04-19] MEDS: AZITHROMYCIN 250 MG TABLET PO SCH (04:49)
[2021-04-19] MEDS: ISOSORBIDE DINITRATE (10MG) 10 MG TABLET PO SCH ×3 (04:49→21:00)
[2021-04-19] MEDS: hydrALAZINE HCL 25 MG TABLET PO SCH ×3 (04:49→21:00)
--- NOTE | 2021-04-19 07:27 | NUR ---
MS RN CLOSING NOTE PATIENT A/OX2; AWAKE. TOLERATING ROOM AIR WELL WITH NO SOB. LAC #24G S/L; PATENT AND INTACT. VSS. NO S/S OF PAIN OR DISCOMFORT SAFETY MEASURES IN PLACE: BED IN LOWEST LOCKED POSITION, SIDE RAILS UPX2, CALL LIGHT WITHIN EASY REACH, BED ALARMS ON. PATIENT IN STABLE CONDITION; ENDORSED PLAN OF CARE TO ONCOMING MORNING RN.
[2021-04-19 07:46] LABS: BASOPHILS # (AUTO) 0.1 K/uL (0.0-0.2); BASOPHILS % (AUTO) 1.2 % (0.0-2.0); EOSINOPHILS % (AUTO) 7.7 % (0.0-6.0); HEMATOCRIT 30 % (39-51); HEMOGLOBIN 9.8 g/dL (13.5-17.5); LYMPHOCYTES # (AUTO) 1.4 K/uL (0.8-4.8); LYMPHOCYTES % (AUTO) 25.7 % (20.0-44.0); MEAN CORPUSCULAR HGB CONC 33 g/dl (31.0-36.0); MEAN CORPUSCULAR VOLUME 105 fL (80-96); MONOCYTES # (AUTO) 0.6 K/uL (0.1-1.30); MONOCYTES % (AUTO) 11.7 % (2.0-12.0); NEUTROPHILS # (AUTO) 2.9 K/uL (1.8-8.9); NEUTROPHILS % (AUTO) 53.7 % (43.0-81.0); PLATELET COUNT (AUTO) 241 K/uL (150-450); RED BLOOD CELL COUNT(AUTO) 2.86 MIL/uL (4.5-6.0); WHITE BLOOD COUNT (AUTO) 5.5 K/uL (4.3-11.0)
--- NOTE | 2021-04-19 07:51 | NUR ---
MS RN OPENING NOTE RECEIVED PATIENT LYING IN BED, AWAKE, TANK HOOP BENDER AT BEDSIDE. A/O X2. STABLE ON ROOM AIR - NO SOB NOTED. NO DISTRESS/DISCOMFORT NOTED. IV ACCESS TO LEFT AC #24G - PATENT AND INTACT - S/L. PATIENT IS ON FLUID RESTRICTION TO 1000ML/DAY. SAFETY MEASURES IN PLACE. CALL LIGHT WITHIN REACH. WILL CONTINUE TO MONITOR.
[2021-04-19 08:00] VITALS: BP 123/74
[2021-04-19 08:07] LABS: CALCIUM, SERUM 8.6 mg/dL (8.5-10.1); CREATININE 2.4 mg/dL (0.6-1.3); POTASSIUM 3.2 mmol/L (3.5-5.1)
[2021-04-19] MEDS: ATOVAQUONE SUSP 750 MG/5 ML PACKET PO SCH (08:25)
[2021-04-19] MEDS: CITRIC ACID/SODIUM CITRATE (BICITRA)15 ML UDC PO SCH ×2 (08:26→16:06)
[2021-04-19] MEDS: FOLIC ACID 1 MG TABLET PO SCH (08:26)
[2021-04-19] MEDS: CHOLECALCIFEROL 1,000 UNIT TABLET (VIT D3) PO SCH (08:26)
[2021-04-19] MEDS: ASCORBIC ACID 500 MG TABLET PO SCH (08:26)
[2021-04-19] MEDS: CALCIUM CARBONATE (1250) 500 MG TABLET PO SCH (08:26)
[2021-04-19] MEDS: MULTIVITAMINS,THERAGRAN 1 UDTAB TABLET PO SCH (08:26)
[2021-04-19] MEDS: METOPROLOL TARTRATE 25 MG TABLET PO SCH ×2 (08:27→21:00)
[2021-04-19] MEDS: methylPREDNISolone SOD SUCC 40 MG/ML VIAL IV SCH (08:28)
[2021-04-19] MEDS: MUPIROCIN OINT 2% 22 GM TUBE NS SCH ×2 (08:31→23:22)
[2021-04-19] MEDS ORDERED: POTASSIUM CHLORIDE 20 MEQ TAB.PRT.SR PO ONE (11:30)
[2021-04-19 16:00] VITALS: BP 117/83
--- NOTE | 2021-04-19 18:12 | NUR ---
MS RN CLOSING NOTE PATIENT CURRENTLY LYING IN BED, AWAKE, WATCHING TV. A/O X2. STABLE ON ROOM AIR - NO SOB NOTED. NO DISTRESS/DISCOMFORT NOTED. IV ACCESS TO LEFT AC #24G - PATENT AND INTACT - S/L. PATIENT IS ON FLUID RESTRICTION TO 1000ML/DAY. SAFETY MEASURES IN PLACE. CALL LIGHT WITHIN REACH. WILL ENDORSE TO LINE HAUL DRIVER NURSE FOR BHAVANI.
--- NOTE | 2021-04-19 19:00 | NUR ---
MS RN OPENING NOTE PATIENT RECEIVED AWAKE IN BED. A/O X2. DIFFICULTY RELATING NEEDS. STABLE ON ROOM AIR - NO SOB NOTED. NO DISTRESS/DISCOMFORT NOTED. IV ACCESS TO LEFT AC #24G SL INTACT, PATENT AND FLUSHING. PATIENT IS ON FLUID RESTRICTION TO 1000ML/DAY. SAFETY MEASURES IN PLACE. CALL LIGHT AND TABLE WITHIN REACH. WILL CONTINUE TO MONITOR.
[2021-04-19 20:00] VITALS: BP 114/77
[2021-04-19] MEDS: QUETIAPINE FUMARATE 25 MG TABLET PO SCH (22:13)
[2021-04-19] MEDS: ENOXAPARIN SODIUM 40 MG/0.4 ML DISP.SYRIN SQ SCH (22:13)
[2021-04-19] MEDS: TAMSULOSIN 0.4 MG CAP.SR.24H PO SCH (22:13)
[2021-04-20] MEDS: AZITHROMYCIN 250 MG TABLET PO SCH (04:44)
[2021-04-20] MEDS: ISOSORBIDE DINITRATE (10MG) 10 MG TABLET PO SCH ×3 (04:58→21:22)
[2021-04-20] MEDS: hydrALAZINE HCL 25 MG TABLET PO SCH ×3 (04:59→21:24)
--- NOTE | 2021-04-20 05:00 | NUR ---
BP 122/77, HR 99, SP02 99, RR 18. VS WNL. HELD.
--- NOTE | 2021-04-20 05:02 | NUR ---
PT'S BP 122/77, HR 99, SP02 99, RR 18 WNL. HELD.
--- NOTE | 2021-04-20 06:00 | NUR ---
MS RN CLOSING NOTE PT AWAKE AND RESTING IN BED COMFORTABLY AT THIS TIME. PT REMAINED STABLE THROUGHOUT SHIFT. ALL NEEDS, MEDICATIONS, AND CARE ADMINISTERED ANTICIPATED PER ORDER. PT REPOSITIONED Q2HR AND PRN. IV ACCESS INTACT, PATENT AND FLUSHING. SAFETY PRECAUTIONS IN LOWEST LOCKED POSITION, HOB ELEVATED, SIDE RAILS UP X2. CALL LIGHT AND TABLE WITHIN REACH. WILL ENDORSE TO DAY SHIFT NURSE FOR BHAVANI.
[2021-04-20 06:43] LABS: BASOPHILS # (AUTO) 0.1 K/uL (0.0-0.2); BASOPHILS % (AUTO) 1.2 % (0.0-2.0); EOSINOPHILS % (AUTO) 4.3 % (0.0-6.0); HEMATOCRIT 28 % (39-51); HEMOGLOBIN 9.5 g/dL (13.5-17.5); LYMPHOCYTES # (AUTO) 1.4 K/uL (0.8-4.8); LYMPHOCYTES % (AUTO) 27.6 % (20.0-44.0); MEAN CORPUSCULAR HGB CONC 34 g/dl (31.0-36.0); MEAN CORPUSCULAR VOLUME 103 fL (80-96); MONOCYTES # (AUTO) 0.7 K/uL (0.1-1.30); MONOCYTES % (AUTO) 13.2 % (2.0-12.0); NEUTROPHILS # (AUTO) 2.7 K/uL (1.8-8.9); NEUTROPHILS % (AUTO) 53.7 % (43.0-81.0); PLATELET COUNT (AUTO) 242 K/uL (150-450); RED BLOOD CELL COUNT(AUTO) 2.75 MIL/uL (4.5-6.0)
--- NOTE | 2021-04-20 07:33 | NUR ---
MS RN OPENING NOTE RECEIVED PATIENT LYING IN BED, RESTING. EASY TO AROUSE. A/O X2. STABLE ON ROOM AIR - NO SOB NOTED. NO DISTRESS/DISCOMFORT NOTED. IV ACCESS TO LEFT AC #24G - PATENT AND INTACT - S/L. PATIENT IS ON FLUID RESTRICTION TO 1000ML/DAY. SAFETY MEASURES IN PLACE. CALL LIGHT WITHIN REACH. WILL CONTINUE TO MONITOR.
[2021-04-20 07:53] LABS: CALCIUM, SERUM 8.9 mg/dL (8.5-10.1); CREATININE 2.5 mg/dL (0.6-1.3); POTASSIUM 3.3 mmol/L (3.5-5.1)
[2021-04-20 08:00] VITALS: BP 127/94
[2021-04-20] MEDS: METOPROLOL TARTRATE 25 MG TABLET PO SCH ×3 (08:32→22:57)
[2021-04-20] MEDS: CALCIUM CARBONATE (1250) 500 MG TABLET PO SCH (08:32)
[2021-04-20] MEDS: CHOLECALCIFEROL 1,000 UNIT TABLET (VIT D3) PO SCH (08:32)
[2021-04-20] MEDS: MULTIVITAMINS,THERAGRAN 1 UDTAB TABLET PO SCH (08:32)
[2021-04-20] MEDS: ASCORBIC ACID 500 MG TABLET PO SCH (08:32)
[2021-04-20] MEDS: FOLIC ACID 1 MG TABLET PO SCH (08:32)
[2021-04-20] MEDS: CITRIC ACID/SODIUM CITRATE (BICITRA)15 ML UDC PO SCH ×2 (08:33→16:41)
[2021-04-20] MEDS: methylPREDNISolone SOD SUCC 40 MG/ML VIAL IV SCH (08:33)
[2021-04-20] MEDS: ATOVAQUONE SUSP 750 MG/5 ML PACKET PO SCH (08:33)
[2021-04-20] MEDS: MUPIROCIN OINT 2% 22 GM TUBE NS SCH ×2 (08:50→21:38)
[2021-04-20] MEDS ORDERED: POTASSIUM CHLORIDE 10 MEQ TABLET.SA PO ONE (10:30)
[2021-04-20 16:00] VITALS: BP 126/86
[2021-04-20] MEDS: TENOFOVIR DISOPROXIL FUMARATE 300 MG TABLET PO SCH (17:30)
[2021-04-20] MEDS: EMTRICITABINE 200 MG CAPSULE PO SCH (17:30)
--- NOTE | 2021-04-20 18:17 | NUR ---
MS RN CLOSING NOTE PATIENT CURRENTLY LYING IN BED, AWAKE, WATCHING TV. A/O X2. STABLE ON ROOM AIR - NO SOB NOTED. NO DISTRESS/DISCOMFORT NOTED. IV ACCESS TO LEFT AC #24G - PATENT AND INTACT - S/L. PATIENT IS ON FLUID RESTRICTION TO 1000ML/DAY. SAFETY MEASURES IN PLACE. CALL LIGHT WITHIN REACH. WILL ENDORSE TO GOLD BLOWER NURSE FOR BHAVANI.
[2021-04-20 20:38] VITALS: BP 119/87
[2021-04-20] MEDS: TAMSULOSIN 0.4 MG CAP.SR.24H PO SCH (21:24)
[2021-04-20] MEDS: ENOXAPARIN SODIUM 40 MG/0.4 ML DISP.SYRIN SQ SCH (21:27)
[2021-04-20] MEDS: QUETIAPINE FUMARATE 25 MG TABLET PO SCH (21:31)
[2021-04-21] MEDS: AZITHROMYCIN 250 MG TABLET PO SCH (03:46)
[2021-04-21] MEDS: hydrALAZINE HCL 25 MG TABLET PO SCH ×3 (05:56→21:15)
[2021-04-21] MEDS: ISOSORBIDE DINITRATE (10MG) 10 MG TABLET PO SCH ×3 (05:57→21:14)
[2021-04-21] MEDS: ATOVAQUONE SUSP 750 MG/5 ML PACKET PO SCH (09:00)
[2021-04-21 09:36] VITALS: BP 105/59
[2021-04-21] MEDS: CHOLECALCIFEROL 1,000 UNIT TABLET (VIT D3) PO SCH (09:37)
[2021-04-21] MEDS: methylPREDNISolone SOD SUCC 40 MG/ML VIAL IV SCH (09:38)
[2021-04-21] MEDS: ASCORBIC ACID 500 MG TABLET PO SCH (09:38)
[2021-04-21] MEDS: CALCIUM CARBONATE (1250) 500 MG TABLET PO SCH (09:38)
[2021-04-21] MEDS: FOLIC ACID 1 MG TABLET PO SCH (09:38)
[2021-04-21] MEDS: CITRIC ACID/SODIUM CITRATE (BICITRA)15 ML UDC PO SCH ×2 (09:39→16:40)
[2021-04-21] MEDS: MUPIROCIN OINT 2% 22 GM TUBE NS SCH (09:39)
[2021-04-21] MEDS: MULTIVITAMINS,THERAGRAN 1 UDTAB TABLET PO SCH (09:40)
[2021-04-21 13:07] LABS: *ANCA ATYPICAL p-ANCA <1:20 titer (Neg:<1:20); *ANCA CYTOPLASMIC (C-ANCA) <1:20 titer (Neg:<1:20); *ANCA PERINUCLEAR (P-ANCA) <1:20 titer (Neg:<1:20)
[2021-04-21 13:56] LABS: BASOPHILS % (AUTO) 0.6 % (0.0-2.0); EOSINOPHILS % (AUTO) 1.8 % (0.0-6.0); HEMATOCRIT 29 % (39-51); HEMOGLOBIN 9.5 g/dL (13.5-17.5); LYMPHOCYTES # (AUTO) 0.9 K/uL (0.8-4.8); LYMPHOCYTES % (AUTO) 14.9 % (20.0-44.0); MEAN CORPUSCULAR HGB CONC 33 g/dl (31.0-36.0); MEAN CORPUSCULAR VOLUME 103 fL (80-96); MONOCYTES # (AUTO) 0.3 K/uL (0.1-1.30); MONOCYTES % (AUTO) 5.6 % (2.0-12.0); NEUTROPHILS # (AUTO) 4.4 K/uL (1.8-8.9); NEUTROPHILS % (AUTO) 77.1 % (43.0-81.0); PLATELET COUNT (AUTO) 257 K/uL (150-450); RED BLOOD CELL COUNT(AUTO) 2.77 MIL/uL (4.5-6.0); WHITE BLOOD COUNT (AUTO) 5.8 K/uL (4.3-11.0)
[2021-04-21 14:00] VITALS: BP 118/87
[2021-04-21 14:06] LABS: CALCIUM, SERUM 8.4 mg/dL (8.5-10.1); CREATININE 2.5 mg/dL (0.6-1.3); POTASSIUM 4.4 mmol/L (3.5-5.1)
--- NOTE | 2021-04-21 19:53 | NUR ---
MS RN Opening Notes Patient was last seen awake in bed resting. Patient's alert and oriented x1-2. Patient's on room air with no respiratory distress noted. Patient has a saline lock on his LAC gauge #24. Patient's in no acute distress at this time. Safety measures in place: Bed locked, bed alarm on, side rails up x3, and call light within reach of the patient. Will continue to monitor the patient.
[2021-04-21 20:00] VITALS: BP 122/86
[2021-04-21] MEDS: ENOXAPARIN SODIUM 40 MG/0.4 ML DISP.SYRIN SQ SCH (21:13)
[2021-04-21] MEDS: TAMSULOSIN 0.4 MG CAP.SR.24H PO SCH (21:14)
[2021-04-21] MEDS: METOPROLOL TARTRATE 25 MG TABLET PO SCH (21:14)
[2021-04-21] MEDS: QUETIAPINE FUMARATE 25 MG TABLET PO SCH (21:14)
[2021-04-22] MEDS: AZITHROMYCIN 250 MG TABLET PO SCH (04:17)
[2021-04-22] MEDS: hydrALAZINE HCL 25 MG TABLET PO SCH ×2 (04:40→12:21)
[2021-04-22] MEDS: ISOSORBIDE DINITRATE (10MG) 10 MG TABLET PO SCH ×2 (04:40→12:20)
[2021-04-22 06:23] LABS: BASOPHILS # (AUTO) 0.1 K/uL (0.0-0.2); BASOPHILS % (AUTO) 1.2 % (0.0-2.0); EOSINOPHILS % (AUTO) 4.6 % (0.0-6.0); HEMATOCRIT 27 % (39-51); LYMPHOCYTES # (AUTO) 1.7 K/uL (0.8-4.8); LYMPHOCYTES % (AUTO) 35.6 % (20.0-44.0); MEAN CORPUSCULAR HGB CONC 34 g/dl (31.0-36.0); MEAN CORPUSCULAR VOLUME 102 fL (80-96); MONOCYTES # (AUTO) 0.5 K/uL (0.1-1.30); NEUTROPHILS # (AUTO) 2.3 K/uL (1.8-8.9); NEUTROPHILS % (AUTO) 48.6 % (43.0-81.0); PLATELET COUNT (AUTO) 243 K/uL (150-450); RED BLOOD CELL COUNT(AUTO) 2.62 MIL/uL (4.5-6.0); WHITE BLOOD COUNT (AUTO) 4.8 K/uL (4.3-11.0)
[2021-04-22 06:30] LABS: CALCIUM, SERUM 8.3 mg/dL (8.5-10.1); POTASSIUM 3.9 mmol/L (3.5-5.1)
--- NOTE | 2021-04-22 07:16 | NUR ---
MS RN Closing Notes Patient was last seen awake in bed resting. Patient's alert and oriented x1-2. Patient's on room air with no respiratory distress noted. Patient's saline lock on his LAC gauge #24 was pulled out. Patient refused for a new IV to be inserted. Risks have been explained to the patient. Patient's in no acute distress at this time. Safety measures in place: Bed locked, bed alarm on, side rails up x3, and call light within reach of the patient. Endorsed care to the day shift nurse.
[2021-04-22 08:00] VITALS: BP 114/76
--- NOTE | 2021-04-22 08:00 | NUR ---
RN OPENING NOTE PT AWAKE IN BED PRESENT. ON RA WITH NO SOB OR RESPIRATORY DISTRESS PRESENT. A/O X 2 AND PERSIAN SPEAKING. NO COMPLAINT OF PAIN OF NAUSEA PRESENT. NO DOCUMENT REVIEWER PRESENT. NO EDEMA PRESENT. ON BEDREST WITH DIAPER PRESENT. GROIN REDNESS PRESENT. ON CARDIAC DIET WITH FLUID RESTRICTION OF 1000 ML. NO IV PRESENT. IV REMOVD BY PT AND REFUSES IV INSERTION. CN NOTIFIED. LABS AND ORDERS REVIEWED. SAFETY MEASURES IN PLACE. SIDE RAILS RAISED. BED LOWERED. CALL LIGHT WITHIN REACH. WILL CONTINUE TO MONITOR.
[2021-04-22] MEDS: CITRIC ACID/SODIUM CITRATE (BICITRA)15 ML UDC PO SCH ×2 (08:21→16:29)
[2021-04-22] MEDS: CHOLECALCIFEROL 1,000 UNIT TABLET (VIT D3) PO SCH (08:22)
[2021-04-22] MEDS: FOLIC ACID 1 MG TABLET PO SCH (08:22)
[2021-04-22] MEDS: ASCORBIC ACID 500 MG TABLET PO SCH (08:22)
[2021-04-22] MEDS: CALCIUM CARBONATE (1250) 500 MG TABLET PO SCH (08:22)
[2021-04-22] MEDS: ATOVAQUONE SUSP 750 MG/5 ML PACKET PO SCH (08:23)
[2021-04-22] MEDS: MULTIVITAMINS,THERAGRAN 1 UDTAB TABLET PO SCH (08:23)
[2021-04-22] MEDS: METOPROLOL TARTRATE 25 MG TABLET PO SCH (08:23)
[2021-04-22] MEDS: methylPREDNISolone SOD SUCC 40 MG/ML VIAL IV SCH (08:23)
[2021-04-22] MEDS ORDERED: AZIT250T PO (12:23)
[2021-04-22] MEDS ORDERED: PRED50TA PO (12:23)
[2021-04-22] MEDS ORDERED: HYDR-4076 PO (12:23)
[2021-04-22] MEDS ORDERED: METO25TA20 PO (12:23)
[2021-04-22] MEDS ORDERED: ISOS10TA2 PO (12:23)
[2021-04-22 16:00] VITALS: BP 105/67
--- NOTE | 2021-04-22 19:18 | NUR ---
HOME SERVICE DEMONSTRATOR NOTE PT DISCHARGED TO [facility], REPORT GIVEN TO ROSANNA DELAROSA. PT IN STABLE CONDITION, VS CHECKED PRIOR TO TRANSPORTATION. EXITCARE EDUCATION UTILIZED AND GIVEN TO CAREGIVER. PRESCRIPTIONS AND MEDICATION RECONCILIATION GIVEN TO CAREGIVER. NO BELONGINGS PRESENT, SIGNED BY RN AND PT. SKIN ISSUES PRESENT, WOUND PHOTOS TAKEN PRIOR TO DISCHARGE. IV LINE REMOVED. ID BAND REMOVED. TRANSPORTATION PROVIDED BY [facility] AND BROUGHT OUT BY EMT.
== END 2021-04-22 19:15 | DRG 140 ==
LOC: TELE 20:22 → UNDOADMIN 20:22 → TELE 22:18 → MED 04-16 10:37
PROVIDERS: ADMIT Registered Nurse; ATTEND Internal Medicine
DX: J44.1 Chronic obstructive pulmonary disease with (acute) exacerbation (principal); N17.0 Acute kidney failure with tubular necrosis; I50.41 Acute combined systolic (congestive) and diastolic (congestive) heart failure; I27.20 Pulmonary hypertension, unspecified; E44.0 Moderate protein-calorie malnutrition; K83.8 Other specified diseases of biliary tract; N13.30 Unspecified hydronephrosis; N18.9 Chronic kidney disease, unspecified; N40.0 Benign prostatic hyperplasia without lower urinary tract symptoms; Z20.822 Contact with and (suspected) exposure to COVID-19; F15.10 Other stimulant abuse, uncomplicated; Z87.891 Personal history of nicotine dependence; Z59.0 Homelessness; R74.01 Elevation of levels of liver transaminase levels; Z87.442 Personal history of urinary calculi; N27.0 Small kidney, unilateral
CPT/HCPCS: 36415; 71045-TC; 74181-TC; 76700-TC; 80048-TC; 80053-TC; 80061-TC; 81001; 82728-TC; 83520; 83540-TC; 83735-TC; 84100-TC; 84155; 84165; 84443-TC; 84484-TC; 85025-TC; 86256; 87040-TC; 87081-TC; 87086-TC; 93307-TC; 97112-TC; 97530-TC; G0378; J1650; J1940; J2060; J2920